=== PATIENT | female | born 2000 | race Caucasian/White ===

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

== ENCOUNTER 2018-01-16 10:52 | Emergency (ER) | payer BC ==
[2018-01-16] MEDS ORDERED: KETOROLAC 30 MG/1 ML SDV IVP ONE (11:35)
[2018-01-16] MEDS ORDERED: NS 1,000 ML IV ONE (11:35)
--- NOTE | 2018-01-16 11:36 | EDPHY ---
H & P Stated Complaint: menstrual cramps and heavy flow Time Seen by Provider: 01/16/18 11:36 HPI/ROS: HPI: This is a 17-year-old female who presents with Chief Complaint: Menstrual cramps and heavy flow Location: Lower abdomen Quality: Menstrual cramping Duration: 2 days Signs and Symptoms: no fever, no nausea, no vomiting, no hematemesis, no blood in stool, no abdominal bloating, no diarrhea, no back pain, no urinary symptoms , no indigestion, no chest pain, no shortness of breath Timing: Acute Severity: Moderate Context: Patient reports that she has been on a control pill for the last 2 months that has caused excessive bleeding. She called her OBGYN last week to discuss this and set up an appointment for next month. She reports that yesterday she woke up with her period and she was changing her pad every 1 hr. She just woke up this morning and has only changed her pad once. She is complaining of bilateral lower abdominal cramping that is constant and moderate in nature. Denies any sexual trauma. No back pain, fever, urinary symptoms. Followed by Dr. Mcintosh. Eating and drinking without difficulty. Modifying Factors: Tried heating pad, Tylenol, ibuprofen without relief Comment: ROS: A comprehensive 10 system review of systems is otherwise negative aside from elements mentioned in the history of present illness. MEDICAL/SURGICAL/SOCIAL HISTORY: Medical history: Generally healthy. Does not take any regular medications. Surgical history: Denies Social history: Never smoked. Family history noncontributory. CONSTITUTIONAL: Well-appearing teenage white female, awake and alert, no obvious distress HEENT: Atraumatic and normocephalic, PERRL, EOMI. Nares patent; no rhinorrhea; no nasal mucosal edema. Tympanic membranes clear. Oropharynx clear, no exudate and moist pink mucosa. Airway patent. No lymphadenopathy. No meningismus. Cardiovascular: Normal S1/S2, regular rate, regular rhythm, without murmur rub or gallop. PULMONARY/CHEST: Symmetrical and nontender. Clear to auscultation bilaterally. Good air movement. No accessory muscle usage. ABDOMEN: Soft, nondistended, nonspecific lower abdominal reproducible tenderness, no rebound, no guarding, no peritoneal signs, no masses or organomegaly. No CVAT. EXTREMITIES: 2/2 pulses, strength 5/5, no deformities, no clubbing, no cyanosis or edema. NEUROLOGICAL: no focal neuro deficits. GCS 15. SKIN: Warm and dry, no erythema. no rash. Good capillary refill. Source: Patient Exam Limitations: No limitations - Personal History LMP (Females 10-55): Now - Medical/Surgical History Hx Asthma: No Hx Chronic Respiratory Disease: No Hx Diabetes: No Hx Cardiac Disease: No Hx Renal Disease: No Hx Cirrhosis: No Hx Alcoholism: No Hx HIV/AIDS: No Hx Splenectomy or Spleen Trauma: No Other PMH: denies - Social History Smoking Status: Never smoked Constitutional: Initial Vital Signs Temperature (C) 36.7 C 01/16/18 10:55 Respiratory Rate 16 01/16/18 10:55 Blood Pressure 100/80 01/16/18 10:55 O2 Sat (%) 97 01/16/18 10:55 O2 Delivery Mode Room Air Allergies/Adverse Reactions: No Known Allergies Allergy (Unverified 05/23/17 15:32) Home Medications: Medication Instructions Recorded Dexamethasone [Decadron] 8 mg PO DAILY #2 tab 05/23/17 Penicillin V Potassium 05/23/17 Tranexamic Acid [Lysteda] 1,300 mg PO TID #15 tablet 01/16/18 Medical Decision Making - Diagnostics Imaging Results: Imaging Impressions Pelvic/Renal Ultrasound 01/16/18 11:35 Impression: Normal ultrasound pelvis. Findings and recommendations discussed with Emergency Department physician, Naye Granados at 12:26 hour, 01/16/2018. Final report concurs with initial preliminary interpretation. ED Course/Re-evaluation: Vital signs reviewed and stable upon arrival. IV access and laboratory studies ordered. Pelvic ultrasound to evaluate for ovarian torsion, ovarian cyst. Given 1 L normal saline and IV Toradol 1228: Called by radiologist who advised that pelvic ultrasound shows only mild pelvic fluid, no ovarian torsion, no ovarian cyst, good blood flow to both ovaries. Labs reviewed. WBC 13 K but no left shift. H&H stable. No coagulopathy/acute kidney injury/electrolyte imbalance/. ED decision to consult OBGYN. Spoke with Dr. Crandall who advised start patient on TXA 1300 mg three times daily times 3-5 days. She is to not take the pill while she is taking the TXA. She may restart her control pill when she stops taking the TXA. She is to call for follow-up appointment in the next 1-2 weeks. This patient was seen under the supervision of my secondary supervising physician. I evaluated care for this patient independently. Discussed this patient with Dr. Dalton. Differential Diagnosis: Abdominal pain in a female including but not limited to ovarian cyst, pelvic inflammatory disease, ovarian torsion, urinary tract infection, and appendicitis. - Data Points Laboratory Results: Laboratory Results 01/16/18 11:45 01/16/18 11:45 01/16/18 01/16/18 01/16/18 11:45 11:45 11:45 WBC RBC Hgb Hct MCV MCH MCHC RDW Plt Count MPV Neut % (Auto) Lymph % (Auto) [place] % (Auto) Eos % (Auto) Baso % (Auto) Nucleat RBC Rel Count Absolute Neuts (auto) Absolute Lymphs (auto) Absolute Monos (auto) Absolute Eos (auto) Absolute Basos (auto) Absolute Nucleated RBC Immature Gran % Immature Gran # PT 13.3 SEC SEC (12.0-15.0) INR 0.99 (0.83-1.16) APTT 28.2 SEC SEC (23.0-38.0) Sodium 142 mEq/L mEq/L (135-145) Potassium 5.0 mEq/L mEq/L (3.3-5.0) Chloride 107 mEq/L mEq/L (97-110) Carbon Dioxide 21 mEq/l L mEq/l (22-31) Anion Gap 14 mEq/L mEq/L (6-14) BUN 10 mg/dL mg/dL (7-23) Creatinine 0.8 mg/dL mg/dL (0.6-1.0) Estimated GFR > 60 Glucose 92 mg/dL mg/dL (70-100) Calcium 10.3 mg/dL mg/dL (8.5-10.4) Beta HCG, Qual NEGATIVE 01/16/18 11:45 WBC 13.49 10^3/uL H 10^3/uL (3.80-9.50) RBC 5.10 10^6/uL 10^6/uL (4.18-5.33) Hgb 15.2 g/dL g/dL (12.6-16.3) Hct 45.1 % % (38.0-47.0) MCV 88.4 fL fL (81.5-99.8) MCH 29.8 pg pg (27.9-34.1) MCHC 33.7 g/dL g/dL (32.4-36.7) RDW 12.1 % % (11.5-15.2) Plt Count 269 10^3/uL 10^3/uL (150-400) MPV 11.0 fL fL (8.7-11.7) Neut % (Auto) 71.3 % % (39.3-74.2) Lymph % (Auto) 18.8 % % (15.0-45.0) [place] % (Auto) 6.4 % % (4.5-13.0) Eos % (Auto) 2.8 % % (0.6-7.6) Baso % (Auto) 0.4 % % (0.3-1.7) Nucleat RBC Rel Count 0.0 % % (0.0-0.2) Absolute Neuts (auto) 9.61 10^3/uL H 10^3/uL (1.70-6.50) Absolute Lymphs (auto) 2.53 10^3/uL 10^3/uL (1.00-3.00) Absolute Monos (auto) 0.87 10^3/uL H 10^3/uL (0.30-0.80) Absolute Eos (auto) 0.38 10^3/uL 10^3/uL (0.03-0.40) Absolute Basos (auto) 0.06 10^3/uL 10^3/uL (0.02-0.10) Absolute Nucleated RBC 0.00 10^3/uL 10^3/uL (0-0.01) Immature Gran % 0.3 % % (0.0-1.1) Immature Gran # 0.04 10^3/uL 10^3/uL (0.00-0.10) PT INR APTT Sodium Potassium Chloride Carbon Dioxide Anion Gap BUN Creatinine Estimated GFR Glucose Calcium Beta HCG, Qual Medications Given: Discontinued Medications Sodium Chloride (Ns) 1,000 mls @ 0 mls/hr IV ONCE ONE; Wide Open PRN Reason: Protocol Stop: 01/16/18 11:36 Last Admin: 01/16/18 11:55 Dose: 1,000 mls Ketorolac Tromethamine (Toradol) 30 mg IVP EDNOW ONE Stop: 01/16/18 11:36 Last Admin: 01/16/18 11:55 Dose: 30 mg Departure - Departure Disposition: Home, Routine, Self-Care Clinical Impression: Dysmenorrhea Menorrhagia Qualifiers: Menorrahagia type: with regular cycle Qualified Code(s): N92.0 - Excessive and frequent menstruation with regular cycle Condition: Good Instructions: Dysfunctional Uterine Bleeding (ED), Dysmenorrhea (ED) Additional Instructions: Consume a minimum of 8-10 glasses of water or electrolyte fluid replacement drinks that include Gatorade, Powerade, Pedialyte. Eat a bland diet for the next 48 hours and then slowly advance as tolerated. Take TXA 1300 mg TID x 3-5 days. Did not take her control pill while taking TXA. You may restart her control pill after you stop taking TXA. Called the OBGYN office for follow-up appointment in the next 7-10 days. Referrals: HAYES GOMEZ [Other] - As per Instructions Anny Mcintosh MD [Medical Doctor] - As per Instructions Stand Alone Forms: School Excuse Prescriptions: Tranexamic Acid [Lysteda] 1,300 mg PO TID #15 tablet
[2018-01-16 12:05] LABS: PLATELET COUNT 269 10^3/uL (150-400)
[2018-01-16 12:13] LABS: INR 0.99 (0.83-1.16); PROTIME(PATIENT) 13.3 SEC (12.0-15.0)
[2018-01-16 13:26] VITALS: BP 117/57
== END 2018-01-16 13:25 | disposition home or self-care (01) ==
DX: N92.0 Excessive and frequent menstruation with regular cycle (principal); N94.6 Dysmenorrhea, unspecified; E86.9 Volume depletion, unspecified
CPT/HCPCS: 96374; J1885